=== PATIENT | male | born 1960 | race Caucasian/White ===

== ENCOUNTER 2017-10-10 08:38 | Emergency (ER) | payer BC ==
[2017-10-10] MEDS ORDERED: Ketorolac 30 MG/ML SDV IVPUSH ONE (09:05)
[2017-10-10] MEDS ORDERED: Sodium Chloride 0.9% 2.5 ML Syringe FLUSH PRN (09:05)
[2017-10-10] MEDS ORDERED: Sodium Chloride 0.9% 10 ML Syringe FLUSH PRN (09:05)
--- NOTE | 2017-10-10 09:11 | EDM.PDOC ---
ED HPI GENERAL MEDICAL PROBLEM - General Stated Complaint: BACK PAIN Time Seen by Provider: 10/10/17 08:55 - History of Present Illness INITIAL COMMENTS - FREE TEXT/NARRATIVE: HISTORY AND PHYSICAL: History of present illness: The patient is a 56-year-old male with no significant GI history or any significant back pain problems who presents with right lower back pain that started 5 days ago. The patient said that it started Friday night while he was sleeping and woke him from sleep. It was deep achy and sharp pain that does not radiate to his leg and he has not had bowel or bladder disturbances hematuria flank pain or abdominal pain. He has no testicular pain or swelling and has not had fevers chills chest pain or shortness of breath. He is drinking and eating normally. He presented to an outside clinic at [place] on Friday and was given a muscle relaxer and prednisone and said that is not helping. He is not taking any anti-inflammatories. The patient says that for work he does do a lot of lifting bending and moving and he has not been able to rest the area and is not sure if that's contributing. He doesn't have any history of any direct pain falls or injuries to the back. He says that when he rubs the area it does help the pain somewhat but it feels like it is more deep. His or neurosensory changes in his right leg. Review of systems: As per history of present illness and below otherwise all systems reviewed and negative. Past medical history: As per history of present illness and as reviewed below otherwise noncontributory. Surgical history: As per history of present illness and as reviewed below otherwise noncontributory. Social history: No reported history of drug or alcohol abuse. Family history: As per history of present illness and as reviewed below otherwise noncontributory. Physical exam: General: Well-developed well-nourished man who is nontoxic and ambulates and moves without discomfort. Vital signs are noted by me HEENT: Atraumatic, normocephalic, negative for conjunctival pallor or scleral icterus, mucous membranes moist, throat clear, neck supple, nontender, trachea midline. Lungs: Clear to auscultation, breath sounds equal bilaterally, chest nontender. Heart: S1S2, regular rate and rhythm no overt murmurs Abdomen: Soft, nondistended, nontender. NABS Negative for costovertebral tenderness. Pelvis: Stable nontender. Genitourinary: Deferred. Rectal: Deferred. Extremities: Atraumatic, full range of motion without defects or deficits. Neurovascular unremarkable. Neuro: Awake, alert, oriented. Cranial nerves II through XII unremarkable. Cerebellum unremarkable. Motor and sensory unremarkable throughout. Exam nonfocal. Dorsi and plantar flexion is intact 5/5 inclusive of the great toe and strength and sensation is grossly normal especially in the right lower extremity. Gait was normal into the ED Back: There are no midline step-offs tenderness defects of the thoracic or lumbar spine and no discrete SI joint pain on the right. I am not able to totally reproduce the pain with palpation of the right lumbar paraspinal muscles. There is no soft tissue injury or defect appreciated in this region. Diagnostics: CBC CMP UA urine culture CT scan of the abdomen and pelvis/lumbar spine Therapeutics: Toradol Patient is aware of all testing results including CT scans that revealed slight disc narrowing at L5-S1, DJD and arthritic changes which are mild, fatty liver and left renal cyst. I've advised him to continue taking his prednisone that he was given 2 days ago and I will offer a different muscle relaxer as well as tramadol for pain. I told him that these muscles are deep and will require time healing. We will also give him anti-inflammatory. Impression: Right lumbar back pain Definitive disposition and diagnosis as appropriate pending reevaluation and review of above. Right Flank Pain Score (Numeric/FACES): 8 - Related Data Allergies Allergy/AdvReac Type Severity Reaction Status Date / Time No Known Allergies Allergy Verified 10/10/17 10:12 ED ROS GENERAL - Review of Systems Review Of Systems: ROS reveals no pertinent complaints other than HPI. ED EXAM, GENERAL - Physical Exam Exam: See Below (see dictation) Course - Vital Signs Last Recorded V/S: Last Vital Signs Temp 36.4 C 10/10/17 09:13 Pulse 77 10/10/17 09:13 Resp 16 10/10/17 09:13 BP 126/69 10/10/17 09:13 Pulse Ox 95 10/10/17 09:13 - Orders/Labs/Meds Orders: Active Orders 24 hr Category Date Time Status CULTURE URINE [RM] Stat Lab 10/10/17 09:26 Ordered UA W/MICROSCOPIC [URIN] Stat Lab 10/10/17 09:20 Ordered Sodium Chloride 0.9% [Saline Flush] Med 10/10/17 09:05 Active 10 ml FLUSH ASDIRECTED PRN Sodium Chloride 0.9% [Saline Flush] Med 10/10/17 09:05 Active 2.5 ml FLUSH ASDIRECTED PRN Saline Lock Insert [OM.PC] Stat Oth 10/10/17 09:04 Ordered Medication Orders Sodium Chloride (Saline Flush) 10 ml FLUSH ASDIRECTED PRN PRN Reason: Keep Vein Open Sodium Chloride (Saline Flush) 2.5 ml FLUSH ASDIRECTED PRN PRN Reason: Keep Vein Open Labs: Laboratory Tests 10/10/17 10/10/17 10/10/17 Range/Units 09:15 09:15 09:20 WBC 4.25 (4.0-11.0) K/uL RBC 4.43 L (4.50-5.90) M/uL Hgb 14.5 (13.0-17.0) g/dL Hct 42.9 (38.0-50.0) % MCV 96.8 (80.0-98.0) fL MCH 32.7 H (27.0-32.0) pg MCHC 33.8 (31.0-37.0) g/dL RDW Std Deviation 48.5 (28.0-62.0) fl RDW Coeff of Hugo 14 (11.0-15.0) % Plt Count 233 (150-400) K/uL MPV 9.30 (7.40-12.00) fL Neut % (Auto) 82.9 H (48.0-80.0) % Lymph % (Auto) 11.5 L (16.0-40.0) % [place] % (Auto) 5.2 (0.0-15.0) % Eos % (Auto) 0.2 (0.0-7.0) % Baso % (Auto) 0.2 (0.0-1.5) % Neut # (Auto) 3.5 (1.4-5.7) K/uL Lymph # (Auto) 0.5 L (0.6-2.4) K/uL [place] # (Auto) 0.2 (0.0-0.8) K/uL Eos # (Auto) 0.0 (0.0-0.7) K/uL Baso # (Auto) 0.0 (0.0-0.1) K/uL Nucleated RBC % 0.0 /100WBC Nucleated RBCs # 0 K/uL Sodium 135 L (136-148) mmol/L Potassium 4.2 (3.5-5.1) mmol/L Chloride 103 (98-107) mmol/L Carbon Dioxide 22.6 (21.0-32.0) mmol/L BUN 13 (7.0-18.0) mg/dL Creatinine 1.0 (0.8-1.3) mg/dL Est Cr Clr Drug Dosing 81.50 mL/min Estimated GFR (MDRD) > 60.0 ml/min Glucose 193 H (74-106) mg/dL Calcium 8.5 (8.5-10.1) mg/dL Total Bilirubin 0.4 (0.2-1.0) mg/dL AST 19 (15-37) IU/L ALT 34 (14-63) IU/L Alkaline Phosphatase 46 (46-116) U/L Total Protein 7.5 (6.4-8.2) g/dL Albumin 3.6 (3.4-5.0) g/dL Globulin 3.9 H (2.0-3.5) g/dL Albumin/Globulin Ratio 0.9 L (1.3-2.8) Urine Color YELLOW Urine Appearance CLEAR Urine pH 6.0 (5.0-8.0) Ur Specific [place] 1.020 (1.001-1.035) Urine Protein NEGATIVE (NEGATIVE) mg/dL Urine Glucose (UA) NEGATIVE (NEGATIVE) mg/dL Urine Ketones NEGATIVE (NEGATIVE) mg/dL Urine Occult Blood NEGATIVE (NEGATIVE) Urine Nitrite NEGATIVE (NEGATIVE) Urine Bilirubin NEGATIVE (NEGATIVE) Urine Urobilinogen 0.2 (<2.0) EU/dL Ur Leukocyte Esterase NEGATIVE (NEGATIVE) Urine RBC 0-1 (0-2/HPF) Urine WBC 0-1 (0-5/HPF) Ur Epithelial Cells RARE (NONE-FEW) Amorphous Sediment LIGHT (NEGATIVE) Urine Bacteria FEW (NEGATIVE) Meds: Medications Generic Name Dose Route Start Last Admin Trade Name Freq PRN Reason Stop Dose Admin Sodium Chloride 10 ml 10/10/17 09:05 Saline Flush FLUSH ASDIRECTED PRN Keep Vein Open Sodium Chloride 2.5 ml 10/10/17 09:05 Saline Flush FLUSH ASDIRECTED PRN Keep Vein Open Discontinued Medications Generic Name Dose Route Start Last Admin Trade Name Shiv PRN Reason Stop Dose Admin Ketorolac Tromethamine 30 mg 10/10/17 09:05 10/10/17 09:17 Toradol IVPUSH 10/10/17 09:06 30 mg ONETIME ONE Administration Departure - Departure Time of Disposition: 10:22 Disposition: Home, Self-Care 01 Condition: Good Clinical Impression: Lumbar back pain - Discharge Information Referrals: PCP,None [Primary Care Provider] - Additional Instructions: The following information is given to patients seen in the emergency department who are being discharged to home. This information is to outline your options for follow-up care. We provide all patients seen in our emergency department with a follow-up referral. The need for follow-up, as well as the timing and circumstances, are variable depending upon the specifics of your emergency department visit. If you don't have a primary care physician on staff, we will provide you with a referral. We always advise you to contact your personal physician following an emergency department visit to inform them of the circumstance of the visit and for follow-up with them and/or the need for any referrals to a consulting specialist. The emergency department will also refer you to a specialist when appropriate. This referral assures that you have the opportunity for followup care with a specialist. All of these measure are taken in an effort to provide you with optimal care, which includes your followup. Under all circumstances we always encourage you to contact your private physician who remains a resource for coordinating your care. When calling for followup care, please make the office aware that this follow-up is from your recent emergency room visit. If for any reason you are refused follow-up, please contact the [facility] emergency department at and ask to speak to the emergency department charge nurse. [facility] Primary care- Internal Medicine and Family [address] [id number] These call your provider in [place] or one of hours for reevaluation and further care next week. Try to rest the area and do all movements and position changes slowly. Please continue the prednisone your given 2 days ago and tried any new muscle relaxer and anti-inflammatory with pain pill as needed. It will take time for these muscles to hero anywhere from 1-2 weeks. Return to ER as needed and as discussed - My Orders Last 24 Hours: My Active Orders 10/10/17 09:04 Saline Lock Insert [OM.PC] Stat 10/10/17 09:05 Sodium Chloride 0.9% [Saline Flush] 10 ml FLUSH ASDIRECTED PRN Sodium Chloride 0.9% [Saline Flush] 2.5 ml FLUSH ASDIRECTED PRN 10/10/17 09:20 UA W/MICROSCOPIC [URIN] Stat 10/10/17 09:26 CULTURE URINE [RM] Stat - Assessment/Plan Last 24 Hours: My Active Orders 10/10/17 09:04 Saline Lock Insert [OM.PC] Stat 10/10/17 09:05 Sodium Chloride 0.9% [Saline Flush] 10 ml FLUSH ASDIRECTED PRN Sodium Chloride 0.9% [Saline Flush] 2.5 ml FLUSH ASDIRECTED PRN 10/10/17 09:20 UA W/MICROSCOPIC [URIN] Stat 10/10/17 09:26 CULTURE URINE [RM] Stat
[2017-10-10 09:59] LABS: CHLORIDE,CL 103 mmol/L (98-107); SODIUM,NA 135 mmol/L (136-148)
--- NOTE | 2017-10-10 10:01 | CT ---
EXAMINATION: CT lumbar spine HISTORY: Back pain COMPARISON: None TECHNIQUE: Axial CT images obtained through the lumbar spine without contrast. Coronal and sagittal r econstructions obtained. FINDINGS: The lumbar spinal alignment is normal. The vertebral body heights appear maintained. Mild d isc space narrowing at L5-S1. Mild marginal osteophytes. There is no fracture or acute osseous abnorm ality. Bone mineralization is normal. The SI joints are symmetric. Retroperitoneal structures are nor mal. IMPRESSION: 1. No acute osseous abnormalities identified. 2. Mild degenerative changes noted within the lumbar spine.
--- NOTE | 2017-10-10 10:08 | CT ---
CT of the abdomen and pelvis without contrast. HISTORY: Pain TECHNIQUE: Axial CT images were obtained of the abdomen and pelvis without contrast. Coronal and sagi ttal reconstructions obtained. FINDINGS: The lung bases are clear, no pleural effusion. Moderate fatty infiltration of the liver. The spleen, adrenal glands, and pancreas appear unremarkabl e for noncontrast examination. The gallbladder appears normal. There is no bulky retroperitoneal lym phadenopathy. No abdominal ascites. There are no calcifications noted within the kidneys or along the courses of the ureters bilaterally. Left renal cysts are noted. The large and small bowel are normal in caliber without evidence of obstruction. The appendix appears normal. There is no bulky pelvic lymphadenopathy. No free fluid. No free air. The urinary bladder ap pears normal. The visualized osseous structures appear normal. IMPRESSION: 1. No acute findings within the abdomen or pelvis. 2. Moderate fatty infiltration of the liver.
== END 2017-10-10 10:39 | disposition home or self-care (01) ==
LOC: MW.ED 08:38
DX: M54.5 Low back pain (principal)
CPT/HCPCS: 36415; 74176; 80053; 81001; 85025; 87086; 96374; 99283; J1885; 72131-26